=== PATIENT | female | born 1960 | race Caucasian/White ===

== ENCOUNTER 2016-09-25 22:19 | Inpatient (IN) | payer OTHER ==
[~2016-09-25] VITALS: Ht 160 cm; Wt 44.6 kg
[~2016-09-25 22:19] MED LIST: ALDA100T PO; BUPR150T3 PO; HYDR-3533 PO; KETO10 PO; ZOFR4TAB3 SL
[2016-09-25 22:33] VITALS: BP 144/72; PULSE 79; RESP 18; TEMP 98.1; O2SAT 96
[2016-09-25 22:37] VITALS: BP 144/72; PULSE 76; RESP 18; O2SAT 98
[2016-09-25] MEDS ORDERED: CLINDAMYCIN INJ 600 MG in SODIUM CHLORIDE 0.9% INJ 100 ML IV ONE (22:45)
[2016-09-25] MEDS ORDERED: MORPHINE SULFATE 4 MG/ML INJ IV PUSH ONE (22:45)
[2016-09-25] MEDS ORDERED: SODIUM CHLORIDE 0.9% FLUSH 10 ML FLUSH IV FLUSH PRN (22:45)
[2016-09-25] MEDS ORDERED: HYDROmorphone HCL PF 1 MG/ML VIAL IV PUSH ONE (23:15)
[2016-09-25] MEDS ORDERED: AMPICILLIN-SULBACTAM INJ 3 GM in SODIUM CHLORIDE 0.9% INJ 100 ML IV ONE (23:15)
--- NOTE | 2016-09-25 23:25 | RADRPT ---
EXAM DATE/TIME: 09/25/2016 22:51 [facility] COMPARISON: No previous studies available for comparison. INDICATIONS : Left wrist pain from dog bite. MEDICAL HISTORY : None. SURGICAL HISTORY : None. ENCOUNTER: Initial ACUITY: 1 day PAIN SCORE: 10/10 LOCATION: Left posterior wrist. FINDINGS: Three view examination of the left wrist demonstrates no soft tissue swelling, dislocation, or fractu re. The carpal bones are in normal alignment. The joint spaces are maintained. Bony mineralization is normal. Gas is identified in the soft tissues at the level of the radial styloid. CONCLUSION: 1. There is no evidence of acute fracture. Lane Reyes MD on September 25, 2016 at 23:22 Board Certified Radiologist. This report was verified electronically.
--- NOTE | 2016-09-25 23:25 | RADRPT ---
EXAM DATE/TIME: 09/25/2016 22:53 [facility] COMPARISON: No previous studies available for comparison. INDICATIONS : Left hand lacerations from dog bite. MEDICAL HISTORY : None. SURGICAL HISTORY : None. ENCOUNTER: Initial ACUITY: 1 day PAIN SCORE: 10/10 LOCATION: Left posterior hand FINDINGS: Three view examination of the left hand demonstrates no soft tissue swelling, dislocation, or fractur e. The carpal bones appear intact. The interphalangeal and metacarpophalangeal joints are intact. Bony mineralization is normal. CONCLUSION: 1. There is no evidence of acute fracture. Lane Reyes MD on September 25, 2016 at 23:23 Board Certified Radiologist. This report was verified electronically.
--- NOTE | 2016-09-25 23:26 | RADRPT ---
EXAM DATE/TIME: 09/25/2016 22:56 [facility] COMPARISON: No previous studies available for comparison. INDICATIONS : Right hand lacerations from dog bite. MEDICAL HISTORY : None. SURGICAL HISTORY : None. ENCOUNTER: Initial ACUITY: 1 day PAIN SCORE: 10/10 LOCATION: Right anterior hand. FINDINGS: Three view examination of the right hand demonstrates no soft tissue swelling, dislocation, or fractu re. The carpal bones appear intact. The interphalangeal and metacarpophalangeal joints are intact. Bony mineralization is normal. Gas is present in the soft tissues along the volar aspect. CONCLUSION: 1. There is no evidence of acute fracture. Lane Reyes MD on September 25, 2016 at 23:23 Board Certified Radiologist. This report was verified electronically.
[2016-09-25] MEDS ORDERED: TETANUS/DIPHTHERIA TOXOID ADULT 0.5 ML VIAL IM ONE (23:30)
--- NOTE | 2016-09-25 23:37 | PD ---
HPI Chief Complaint: Bite or Sting Time Seen by Provider: 22:29 Travel History International Travel<30 days: No Contact w/Intl Traveler<30days: No Traveled to known affect area: No History of Present Illness HPI 55-year-old female brought in by EMS from home after being bitten on both hands by her dog at home. Patient reports that their house cat ran in front of her dog. The dog growled and appeared as though he might attack the cat, so the patient yelled at him. The dog turned around and bit her in both of her hands. Patient reports that the dog latched onto her hands and it was difficult for her to remove her hands from his mouth. She reports that the dog is fully vaccinated. She does not recall the date of her last tetanus. Pain is currently severe, constant, bilateral hands, worse with movement and palpation. She denies any other injuries. PFSH Past Medical History Depression: Yes Cancer: No Cardiovascular Problems: No Diabetes: No Endocrine: No Genitourinary: Yes (INTERSTITIAL CYSTITIS) Hepatitis: No Hiatal Hernia: No Immune Disorder: No Musculoskeletal: Yes (NECK PAIN, "LOCKS UP") Neurologic: No Psychiatric: No Reproductive: Yes (UTERINE FIBROIDS) Respiratory: No Integumentary: Yes (OILY SKIN) Immunizations Current: Yes Thyroid Disease: No Menopausal: Yes Past Surgical History AICD: No Body Medical Devices: SUKUMAR BREASTS Genitourinary Surgery: Yes ( BLADDER BIOPSY AND HYPERDISTENSION 11/17/07) Hysterectomy: Yes Joint Replacement: No Pacemaker: No Thoracic Surgery: Yes (SUKUMAR BREAST IMPLANTS ) Other Surgery: Yes Social History Alcohol Use: No Tobacco Use: No Substance Use: No Allergies-Medications (Allergen,Severity, Reaction): Coded Allergies: No Known Allergies (Verified , 03/28/15) Reported Meds & Prescriptions Reported Meds & Active Scripts Active Reported Zovirax (Acyclovir) Unknown Strength Tab Unknown Dose PO DAILY PRN Estradiol 1 Mg Tab 1 Mg PO DAILY Aldactone (Spironolactone) 100 Mg Tab 100 Mg PO EVERY OTHER DAY Review of Systems Except as stated in HPI: all other systems reviewed are Neg Physical Exam Narrative GENERAL: Well-developed, well-nourished, awake, alert, tearful, no apparent distress. SKIN: Dorsum of left hand with with 2 deep/worse onto lacerations over the mid aspect of the hand exposing the tendons of the second and third digits. There are no visible contaminants in this wound, no active bleeding. Right hand with a deep L-shaped laceration over the thenar eminence with exposed tendons, no visible contaminants, mild venous bleeding. Deep laceration to the right medial /mid thumb with no active bleeding, no visible contaminants. HEAD: Atraumatic. Normocephalic. EYES: Pupils equal and round. No scleral icterus. No injection or drainage. ENT: Mucous membranes pink and moist. NECK: Trachea midline. No JVD. CARDIOVASCULAR: Regular rate and rhythm. Bilateral distal radial pulses are brisk and equal. Normal capillary refill in bilateral hands. RESPIRATORY: No accessory muscle use. Clear to auscultation. Breath sounds equal bilaterally. GASTROINTESTINAL: Abdomen soft, non-tender, nondistended. Hepatic and splenic margins not palpable. MUSCULOSKELETAL: Skin exam as above in bilateral hands. Bilateral hands are neurovascularly intact. There are no obvious bony deformities. Both hands are diffusely tender. Range of motion exam difficult to perform because the patient is in an extensive amount of pain. NEUROLOGICAL: Awake and alert. No obvious cranial nerve deficits. Motor grossly within normal limits. Normal speech. PSYCHIATRIC: Appropriate mood and affect; insight and judgment normal. Data Data Last Documented VS Vital Signs Date Time Temp Pulse Resp B/P Pulse Ox O2 Delivery O2 Flow Rate FiO2 09/25/16 22:37 76 18 09/25/16 22:37 144/72 98 09/25/16 22:33 98.1 Orders Basic Metabolic Panel (Bmp) (09/25/16 22:38) Complete Blood Count With Diff (09/25/16 22:38) Prothrombin Time / Inr (Pt) (09/25/16 22:38) Act Partial Throm Time (Ptt) (09/25/16 22:38) Iv Access Insert/Monitor (09/25/16 22:38) Ecg Monitoring (09/25/16 22:38) Oximetry (09/25/16 22:38) Sodium Chloride 0.9% Flush (Ns Flush) (09/25/16 22:45) Hand, Complete ([id number]) (09/25/16 ) Hand, Complete ([id number]) (09/25/16 ) Clindamycin Inj (Cleocin Inj) (09/25/16 22:45) Morphine Inj (Morphine Inj) (09/25/16 22:45) Wrist, Complete ([id number]) (09/25/16 ) Ampicillin-Sulbactam Inj (Unasyn Inj) (09/25/16 23:15) Hydromorphone Pf Inj (Dilaudid Pf Inj) (09/25/16 23:15) Tetanus/Diphtheria Tox Adult (Tetanus/Di (09/25/16 23:30) Labs Laboratory Tests Test 09/25/16 23:15 White Blood Count 10.0 TH/MM3 Red Blood Count 4.24 MIL/MM3 Hemoglobin 12.9 GM/DL Hematocrit 38.5 % Mean Corpuscular Volume 90.8 FL Mean Corpuscular Hemoglobin 30.4 PG Mean Corpuscular Hemoglobin 33.5 % Concent Red Cell Distribution Width 13.0 % Platelet Count 214 TH/MM3 Mean Platelet Volume 7.9 FL Neutrophils (%) (Auto) 46.2 % Lymphocytes (%) (Auto) 43.2 % Monocytes (%) (Auto) 7.6 % Eosinophils (%) (Auto) 0.5 % Basophils (%) (Auto) 2.5 % Neutrophils # (Auto) 4.6 TH/MM3 Lymphocytes # (Auto) 4.3 TH/MM3 Monocytes # (Auto) 0.8 TH/MM3 Eosinophils # (Auto) 0.1 TH/MM3 Basophils # (Auto) 0.3 TH/MM3 CBC Comment DIFF FINAL Differential Comment Prothrombin Time 10.7 SEC Prothromb Time International 1.0 RATIO Ratio Activated Partial 22.9 SEC Thromboplast Time Sodium Level 141 MEQ/L Potassium Level 3.6 MEQ/L Chloride Level 103 MEQ/L Carbon Dioxide Level 30.1 MEQ/L Anion Gap 8 MEQ/L Blood Urea Nitrogen 16 MG/DL Creatinine 0.87 MG/DL Estimat Glomerular Filtration 68 ML/MIN Rate Random Glucose 114 MG/DL Calcium Level 8.8 MG/DL MDM Medical Decision Making Medical Screen Exam Complete: Yes Emergency Medical Condition: Yes Differential Diagnosis Dog bite, hand lacerations, hand fractures, tendinous injuries Narrative Course Shortly after the patient arrived to the emergency department, the case was discussed with on-call hand surgeon Dr. Silva. Patient last ate about an hour prior to coming to the emergency department. He contacted the OR, and currently there are two emergent cases as well as an appendicitis case waiting to be done. He will not be able to take the patient to the OR tonight. He will like the patient to be admitted to the medical service. Wounds will be thoroughly irrigated at the bedside, and sterile dressing will be applied. Patient will be given a dose of IV Unasyn and will be admitted to the medical service with consultation to Dr. Silva who plans to take the patient to the OR tomorrow for washout and exploration with likely tendon repair. Bilateral hand x-ray show no acute fractures. Left wrist x-ray shows no acute fracture. Bilateral hand wounds were copiously irrigated, and Telfa and sterile dressing applied by my tech. Patient made aware of all findings and plan for admission. Case discussed with [facility] hospitalist LOLA Perez. The patient will be admitted to their service under Dr. Martin Diagnosis Primary Impression: Dog bite of left hand Qualified Code: S61.452A - Dog bite of left hand, initial encounter Additional Impression: Dog bite of right hand Qualified Code: S61.451A - Dog bite of right hand, initial encounter Admitting Information Admitting Physician Requests: Admit Angel Breaux MD Sep 25, 2016 23:37
[2016-09-25 23:55] LABS: AUTOMATED NEUTROPHIL # 4.6 TH/MM3 (1.8-7.7); BASOPHIL # 0.3 TH/MM3 (0-0.2); BASOPHIL % 2.5 % (0.0-2.0); EOSINOPHIL # 0.1 TH/MM3 (0-0.4); EOSINOPHIL % 0.5 % (0.0-4.0); HEMATOCRIT 38.5 % (35.0-46.0); HEMO FLAGS DIFF FINAL; LYMPH % 43.2 % (9.0-44.0); LYMPHOCYTE # 4.3 TH/MM3 (1.0-4.8); MEAN CELL VOLUME 90.8 FL (80.0-100.0); MEAN CORPUSCULAR HEMOGLOBIN 30.4 PG (27.0-34.0); MEAN CORPUSCULAR HGB CONC 33.5 % (32.0-36.0); MONO % 7.6 % (0.0-8.0); NEUT % 46.2 % (16.0-70.0); PLATELET COUNT 214 TH/MM3 (150-450); RED BLOOD COUNT 4.24 MIL/MM3 (4.00-5.30)
[2016-09-25 23:59] LABS: APTT (PATIENT) 22.9 SEC (24.3-30.1); PROTHROMBIN TIME - PATIENT 10.7 SEC (9.8-11.6)
[2016-09-26] VITALS (10 sets, daily range): BP systolic 110–155; BP diastolic 60–84; PULSE 69–87; RESP 16–18; TEMP 97.1–98.6; O2SAT 96–99
[2016-09-26 00:04] LABS: BICARBONATE 30.1 MEQ/L (21.0-32.0); POTASSIUM 3.6 MEQ/L (3.5-5.1)
[2016-09-26] MEDS ORDERED: ESTR1TAB PO (00:06)
[2016-09-26] MEDS ORDERED: ALDA100T PO (00:06)
[2016-09-26] MEDS ORDERED: ZOVI400T PO (00:06)
[2016-09-26] MEDS ORDERED: HYDROmorphone HCL PF 1 MG/ML VIAL IV PUSH ONE (00:30)
[2016-09-26] MEDS ORDERED: SODIUM CHLORIDE 0.9% FLUSH 10 ML FLUSH IV FLUSH PRN (01:00)
[2016-09-26] MEDS ORDERED: BISACODYL 10 MG SUPP RECTAL PRN (01:00)
[2016-09-26] MEDS ORDERED: MAGNESIUM HYDROXIDE SUSP 30 ML CUP PO PRN (01:00)
[2016-09-26] MEDS ORDERED: HYDROmorphone HCL PF 1 MG/ML VIAL IV PRN ×2 (01:00)
[2016-09-26] MEDS ORDERED: LACTULOSE SYRUP 20 GM/30 ML CUP PO PRN (01:00)
[2016-09-26] MEDS ORDERED: NALOXONE HCL 0.4 MG/ML AMP IV PRN (01:00)
[2016-09-26] MEDS ORDERED: ONDANSETRON HCL 4 MG/2 ML VIAL IVP PRN (01:00)
[2016-09-26] MEDS ORDERED: AMPICILLIN-SULBACTAM INJ 3 GM in SODIUM CHLORIDE 0.9% INJ 100 ML IV SCH (01:00)
[2016-09-26] MEDS ORDERED: SENNOSIDES 8.6 MG TAB PO PRN (01:00)
[2016-09-26] MEDS ORDERED: ACETAMINOPHEN 325 MG TAB PO PRN ×2 (01:00)
[2016-09-26] MEDS: SODIUM CHLOR 0.9% 1000 ML INJ 1,000 ML IV SCH ×3 (01:19→20:53)
[2016-09-26] MEDS ORDERED: SODIUM CHLORID 0.9% 500 ML IV PRN (02:00)
[2016-09-26] MEDS ORDERED: CHLORHEXIDINE GLUCONATE 2 % 1 PACK (2 CLOTHS) TOPICAL PRN (02:00)
[2016-09-26] MEDS ORDERED: LACTATED RINGER'S 1000 ML IV PRN (02:00)
[2016-09-26] MEDS ORDERED: POVIDONE IODINE 5% (ANTISEPSIS KIT) 4 APPLICATIONS EACH NARE PRN (02:00)
[2016-09-26] MEDS ORDERED: INSULIN HUMAN REGULAR 1,000 UNITS/10 ML VIAL SQ PRN (02:00)
[2016-09-26] MEDS ORDERED: METOPROLOL TARTRATE 25 MG TAB PO PRN (02:00)
[2016-09-26] MEDS ORDERED: HYDROmorphone HCL PF 1 MG/ML VIAL IV PUSH PRN (02:45)
[2016-09-26] MEDS ORDERED: KETOROLAC TROMETHAMINE 30 MG/ML (IVP) VIAL IV PUSH ONE (02:45)
[2016-09-26] MEDS: AMPICILLIN-SULBACTAM INJ 3 GM in SODIUM CHLORIDE 0.9% INJ 100 ML IV SCH ×4 (05:00→21:45)
[2016-09-26] MEDS ORDERED: MIDAZOLAM HCL 2 MG/2 ML VIAL ONE (05:43)
[2016-09-26] MEDS ORDERED: ACETAMINOPHEN 1000 MG/100 ML VIAL IV ONE (05:43)
[2016-09-26] MEDS ORDERED: fentaNYL CITRATE 250 MCG/5 ML AMP ONE (05:43)
[2016-09-26] MEDS ORDERED: AMPICILLIN-SULBACTAM INJ 1,500 MG VIAL IM ONE (05:59)
[2016-09-26] MEDS ORDERED: LIDOCAINE HCL 1% 20 ML VIAL INFIL ONE (06:05)
[2016-09-26] MEDS ORDERED: NEOMYCIN/POLYMYXIN 1 ML G.U. IRRIGANT TOPICAL ONE (06:05)
[2016-09-26] MEDS ORDERED: BUPIVACAINE HCL PF 0.5% 30 ML VIAL INFIL ONE (06:05)
--- NOTE | 2016-09-26 07:14 | PD.OP ---
Operative Report Preoperative Diagnosis: (1) Dog bite of left hand (2) Dog bite of right hand Postoperative Diagnosis: (1) dog bite left hand/wrist with infection and extensor tendon laceration (2) Dog bite of multiple sites of right hand and fingers Procedure: exploration, wash, excisional debridement, repair of extensor carpi radialis longus left hand/wrist exploration, wash, and repair multiple lacerations right palm and thumb Anesthesia: general Surgeon: Brad Silva Guitar Repair Technician(s): jose r Operation and Findings: laceration over the dorsal aspect of the left hand/wrist in a transverse fashion with laceration of the extensor carpi radialis longus, extensor tenosynovitis of the 2nd and 4th compartments laceration measuring 3X3 cms over the right palm, laceration measuring 2X1 cms over ulnar aspect of the distal phalanx region of the right thumb Brad Silva MD Sep 26, 2016 07:14
[2016-09-26] MEDS ORDERED: DO NOT ADM ANY ANTICOAGULANT DRUGS PRN (07:18)
[2016-09-26] MEDS: SODIUM CHLORIDE 0.9% FLUSH 10 ML FLUSH IV FLUSH SCH ×2 (07:51→21:46)
[2016-09-26] MEDS: DOCUSATE SODIUM 50 MG/SENNA 8.6 MG TAB PO SCH ×2 (08:49→21:45)
[2016-09-26] MEDS: KETOROLAC TROMETHAMINE 30 MG/ML (IVP) VIAL IV PUSH PRN ×2 (10:20→16:20)
[2016-09-26] MEDS ORDERED: PROPOFOL 200 MG/20 ML AMP IV ONE (12:00)
[2016-09-26] MEDS ORDERED: ePHEDrine/NS 25 MG/5 ML SYR IV ONE (12:00)
[2016-09-26] MEDS ORDERED: ONDANSETRON HCL 4 MG/2 ML VIAL IV PUSH ONE (12:00)
[2016-09-26] MEDS ORDERED: PHENYLEPH/NS 1000 MCG/10 ML SYR IV ONE (12:00)
--- NOTE | 2016-09-26 12:38 | MH ---
cc: SELENA ARDON MD DATE OF ADMISSION: 09/26/2016 DATE OF : 1960 CHIEF COMPLAINT Dog bite. RECENT TRAVEL: Travel in the last 30 days, none. HISTORY OF PRESENT ILLNESS This and a pleasant 55-year-old white female who was bitten yesterday in her home by her dog. She reports according to the record that the cat ran out in front of the dog and there was a potential attack about to happen. The patient went in between the two animals per her instinct and the dog turned around and had bitten both her hands. According to the record he latched on and it was difficult for her to get her hands away from his mouth. She does note the Dog has been fully vaccinated but initially had severe constant pain in her hands, worsened with movement. The patient was brought to the emergency room for further observation and treatment regimen. The patient denies any chest pain, no shortness of breath. No headache. No recent weight gain or weight loss. PAST MEDICAL HISTORY: Medical history includes depression interstitial cystitis. Neck pain. Uterine fibroids. Oily skin. PAST SURGICAL HISTORY Bilateral wrist Bladder biopsy Hyperdistention in 2007. Hysterectomy. She has bilateral breast implants. ALLERGIES No known. MEDICATIONS: acyclovir p.r.n. estradiol 1 mg p.o. daily spirolactone 100 mg by mouth every other day. SOCIAL HISTORY The patient is currently lives at home with her . No tobacco, no illicit drug use. Rare social alcohol intake. REVIEW OF SYSTEMS Review of systems 12-point reviewed at this time. Positives noted in the HPI which include her injury and trauma to the hands from a dog bite. Other systems negative or unremarkable. PHYSICAL EXAMINATION: VITAL SIGNS: Temperature 97.1, pulse 82, respirations 16, blood pressure 131/72, has been as low as 99/54, now 151/71 postop. IN GENERAL: Thin white female looks to be her stated age ambulating to the bathroom and resting in the bed. The patient is status post hand surgery with repair of lacerations and left hand tendon repair. Her dressings are clean, dry and intact. SKIN: The skin is pink, warm and dry. HEAD, EYES, EARS, NOSE, AND THROAT: Atraumatic, normocephalic. Pupils equal, round, reactive to light and accommodation at three. No scleral icterus. Mucous membranes were pink and moist. NECK: Neck is supple. CARDIOVASCULAR SYSTEM: Heart sounds, S1, S2, no murmurs, rubs or gallops. No edema, pulses are intact. PULMONARY: Essentially clear, anteriorly and posteriorly. ABDOMEN: Flat, soft, nontender, active bowel sounds in all four Quadrants. MUSCULOSKELETAL: Moves her lower extremities with purpose. Overcomes resistance. No obvious deformities. Both hands are secured with bulky dressings, clean, dry and intact. The left hand has a larger bulkier dressing then the right and is elevated. NEUROLOGICALLY: She is awake, alert, mildly anxious white cell are mildly anxious over current condition and her bowel voices clear psychiatric with and affect are appropriate. DIAGNOSTIC DATA White blood count, red blood cells 4.24, hemoglobin 12.9, hematocrit 38.5, platelet count 214. Basal cell count percentage 2.5, PT/INR 1. Chemistry sodium 141 potassium 3.6, chloride 103, carbon dioxide 30.1, amnion gap 8, BUN 16, creatinine 0.87, GFR 68, random glucose 114, calcium 8.8. IMAGINING STUDIES: Show wrist x-ray with no evidence of acute fracture. Hand x-rays no fractures in the left or right. ASSESSMENT AND PLAN: Dog bite bilateral, left and right hand, accidental. History of uterine fibroids, perimenopausal. Left extensor tendon laceration with infection on dog bite right hand and finges, multiple sites. Dog bite left hand and wrist with infection and extensor tendon laceration. PLAN: Our plan is to admit, the patient was treated in the emergency room with IV antibiotics. Pain management, initial labs and x-rays, hand surgery consult was done, the patient was taken to the surgery this morning for repair of her lacerations and tendons. She is status post surgical procedure, in the room now, up ambulating, awake and alert, anxious and upset over the current dog bite situation and her dog. Vital signs are q four hours and as needed. Medications were reconciled as warranted. The patient has cultures that are pending from the wound. IV antibiotics, ampicillin. Toradol 10 mV IV every 6 hours and needed for pain. Also has IV pain management with Dilaudid as needed. bowel regimen with laxatives and stool softeners as warranted. DVT prophylaxis with sequential compression devices. Prophylaxis with Pepcid. We appreciate the consult and following of surgeon. Patient will remain on IV antibiotics until transition to p.o. the patient is still full code, full aggressive care. Selena Ardon MD DICTATED BY: SHARI Walker/aida /11:18 AM 11:56 AM seen, examined by myself, Dr Ardon, today Discussed with patient Moving the fingers of both hands, left upper extremity elevated Status post surgery by hand surgeon Continue antibiotics per infectious disease specialist She wants to go home tomorrow She will have to have clearance from both hand surgery and ID before doing that Discussed with mid level provider The exam, history, and the medical decision-making described in the above note were completed with the assistance of the mid-level provider. I reviewed the findings presented. I attest that I had a [id number] encounter with the patient on the same day, and personally performed and documented my assessment and findings in the medical record. 40 minutes MTDD
[2016-09-26] MEDS: FAMOTIDINE 20 MG TAB PO SCH (21:46)
[2016-09-27] MEDS: AMPICILLIN-SULBACTAM INJ 3 GM in SODIUM CHLORIDE 0.9% INJ 100 ML IV SCH ×2 (04:37→10:56)
[2016-09-27] MEDS: KETOROLAC TROMETHAMINE 30 MG/ML (IVP) VIAL IV PUSH PRN ×2 (04:38→10:57)
[2016-09-27 05:21] VITALS: BP 123/70; PULSE 74; RESP 16; TEMP 98.6; O2SAT 97
[2016-09-27 08:00] VITALS: BP 136/76; PULSE 79; RESP 18; TEMP 97.9; O2SAT 97
[2016-09-27] MEDS ORDERED: ESTRADIOL 1 MG TAB PO SCH (09:00)
[2016-09-27] MEDS: DOCUSATE SODIUM 50 MG/SENNA 8.6 MG TAB PO SCH (09:00)
[2016-09-27 10:03] VITALS: O2SAT 97
--- NOTE | 2016-09-27 10:26 | HHI.PR ---
Subjective Remarks complains of pain over the left wrist no pain right hand no numbness or tingling no fever Objective Vital Signs Date Time Temp Pulse Resp B/P Pulse Ox O2 Delivery O2 Flow Rate FiO2 09/27/16 10:03 97 21 09/27/16 08:00 97.9 79 18 136/76 97 09/27/16 05:21 98.6 74 16 123/70 97 09/26/16 23:59 98.0 76 16 131/60 98 09/26/16 20:04 97.6 69 16 110/61 96 09/26/16 16:22 98.6 85 16 154/69 99 09/26/16 14:08 98 Nasal Cannula 3.00 09/26/16 11:14 98.6 82 155/62 97 I/O 09/26/16 09/26/16 09/26/16 09/27/16 09/27/16 09/27/16 07:00 15:00 23:00 07:00 15:00 23:00 Intake Total 0 ml 290 ml 480 ml Balance 0 ml 290 ml 480 ml Intake Oral 0 ml 240 ml 480 ml IV Total 50 ml # Voids 0 2 2 # Bowel Movements 0 0 left hand and wrist: packing in place surrounding swelling noted mild drainage range of motion of fingers painful and limited intact distal circulation intact distal sensation right hand: wound clean and dry able to make full fist intact sensation gram stain: many wbc's Result Diagram: 09/25/16 2315 09/25/165 Assessment and Plan Assessment and Plan 55 year old female s/p exploration, wash, debridement, repair of ECRL left wrist and hand POD 1 plan; packing removed dry dressing applied new volar wrist splint applied can be discharged on home on po augmentin and pain meds keep the part elevated range of motion exercises follow up in office on Thursday09/30/16. call [phone] for appointment Brad Silva MD Sep 27, 2016 10:26
[2016-09-27] MEDS: FAMOTIDINE 20 MG TAB PO SCH (10:57)
[2016-09-27] MEDS: SODIUM CHLORIDE 0.9% FLUSH 10 ML FLUSH IV FLUSH SCH (10:58)
[2016-09-27] MEDS ORDERED: KETO10 PO (11:02)
[2016-09-27] MEDS ORDERED: AUGM875T3 PO (11:02)
--- NOTE | 2016-09-27 11:03 | HHI.DCPOC ---
Discharge Care Plan Diagnosis: (1) dog bite left hand/wrist with infection and extensor tendon laceration Your Health Problems Are: Skin Breakdown Inflammation Swelling Goals to Promote Your Health * To prevent worsening of your condition and complications * To maintain your health at the optimal level Directions to Meet Your Goals Take your medications as prescribed Follow your dietary instruction Follow activity as directed Keep your appointments as scheduled Take your immunizations and boosters as scheduled If your symptoms worsen call your PCP, if no PCP go to Urgent Care Center or Emergency Room Smoking is Dangerous to Your Health. Avoid second hand smoke Call the 24-hour hour crisis hotline for domestic abuse at Bri Winkler. [facility] Sep 27, 2016 11:03
--- NOTE | 2016-09-27 11:09 | HHI.PR ---
Subjective Subjective Remarks anxious to go home, cleared by hand surgeon, has f/u appointment narcotics make her sick, prefers Toradol no cp no sob no fever left hand sore intact sensation mother at d doesn't want [facility] Review of Systems Constitutional Constitutional Remarks 12 point ros completed, negative except as noted above Vitals/Results Intake & Output 09/26/16 09/26/16 09/27/16 14:59 22:59 06:59 Intake Total 290 ml 480 ml Balance 290 ml 480 ml Intake Oral 240 ml 480 ml IV Total 50 ml # Voids 2 2 # Bowel Movements 0 Vital Signs Vital Signs Date Time Temp Pulse Resp B/P Pulse Ox O2 Delivery O2 Flow Rate FiO2 09/27/16 10:03 97 21 09/27/16 08:00 97.9 79 18 136/76 97 09/27/16 05:21 98.6 74 16 123/70 97 09/26/16 23:59 98.0 76 16 131/60 98 09/26/16 20:04 97.6 69 16 110/61 96 09/26/16 16:22 98.6 85 16 154/69 99 09/26/16 14:08 98 Nasal Cannula 3.00 09/26/16 11:14 98.6 82 155/62 97 CBC/BMP: 09/25/16 2315 09/25/16 2315 Physical Exam General General Appearance: Well Developed, Well Nourished, No Acute Distress, Comfortable Eyes Eye Exam: Pupils Equal, Pupils Reactive Ears & Nose Ears & Nose Exam: Nasal Mucosa [place] Throat Throat Exam: Oral Mucosa [place] & Moist Neck Neck Exam: Neck Supple Pulmonary Resp Exam: Clear Bilaterally, No Distress Cardiology CV Exam: Regular, Good Perfusion Gastrointestinal/Abdomen GI Exam: Soft, Non-Tender, Bowel Sounds Present, Non-Distended Musculoskeletal MS Exam: Joints Intact MS Remarks left harm with bulky dressing intact right hand with dressing intact fingers swollen, able to move intact sensation Integumentary Skin Exam: Warm, Dry Extremeties Extremities Exam: No Edema, Pedal Pulses Palpable Neurologic Neuro Exam: Alert, Awake, Oriented, Speech Clear, Moving All Extremities, No Focal Deficits Psychiatric Psych Exam: Appropriate Responses VTE Prophylaxis VTE Prophylaxis Device: SCDs VTE Remarks PEPCID Assessment/Plan Problem List: (1) Dog bite of multiple sites of right hand and fingers (2) Dog bite of left hand (3) dog bite left hand/wrist with infection and extensor tendon laceration Assessment/Plan appreciate hand surgery input 09/26-S/P exploration, wash, excisional debridement, repair of extensor carpi radialis longus left hand/wrist & exploration, wash, and repair multiple lacerations right palm and thumb had dressing changed today continue abx ok for dc with f/u Thursday and keep dressing intact, needs sling recommends Augmentin x 1 week cultures negative no fever, pain well controlled on Toradol doesn't want narcotics stable for discharge F/U Dr. Carmona on 09/30 Wound care-done today, leave as is Activity-keep left arm elevated, use sling Diet-regular D/W RN D/W Dr. Kellogg D/W pt This patient was seen by myself and Dr. Kellogg, this note is written on her behalf. Discharge Minutes: 40 Problem Qualifiers (1) Dog bite of multiple sites of right hand and fingers: Qualified Code: S61.451A - Dog bite of multiple sites of right hand and fingers , initial encounter (2) Dog bite of left hand: Qualified Code: S61.452A - Dog bite of left hand, initial encounter Bri Winkler Sep 27, 2016 11:09
--- NOTE | 2016-09-27 18:37 | HHI.DS ---
Discharge Summary Admission Date Sep 26, 2016 at 00:31 Discharge Date: Sep 27, 2016 Admitting Diagnosis dog bite of bilateral hands (1) Dog bite of left hand (2) Dog bite of right hand (3) dog bite left hand/wrist with infection and extensor tendon laceration (4) Dog bite of left hand with infection Procedures 09/26-S/P exploration, wash, excisional debridement, repair of extensor carpi radialis longus left hand/wrist & exploration, wash, and repair multiple lacerations right palm and thumb CBC/BMP: 09/25/16 2315 09/25/16 2315 Significant Findings Laboratory Tests Test 09/25/16 23:15 Basophils (%) (Auto) 2.5 % (0.0-2.0) Basophils # (Auto) 0.3 TH/MM3 (0-0.2) Activated Partial 22.9 SEC Thromboplast Time (24.3-30.1) Estimat Glomerular Filtration 68 ML/MIN (>89) Rate Random Glucose 114 MG/DL (74-106) Imaging Last Impressions Wrist X-Ray 09/25/16 0000 Signed Impressions: Service Date/Time: September 22:51 - CONCLUSION: 1. There is no evidence of acute fracture. Lane Reyes MD Hand X-Ray 09/25/16 0000 Signed Impressions: Service Date/Time: September 22:56 - CONCLUSION: 1. There is no evidence of acute fracture. Lane Reyes MD Hospital Course This is a pleasant 55-year-old white female who was bitten yesterday in her home by her dog. She reported according to the record that the cat ran out in front of the dog and there was a potential attack about to happen. The patient went in between the two animals per her instinct and the dog turned around and bit both her hands. According to the record he latched on and it was difficult for her to get her hands away from his mouth. She did note the Dog has been fully vaccinated but initially had severe constant pain in her hands, worsened with movement. The patient was brought to the emergency room for further observation and treatment regimen. The patient denied any chest pain, no shortness of breath. No headache. No fever, no chills. Pt. was evaluated. DIAGNOSTIC DATA White blood count 10, red blood cells 4.24, hemoglobin 12.9, hematocrit 38.5, platelet count 214. Basal cell count percentage 2.5, PT/INR 1. Chemistry sodium 141 potassium 3.6, chloride 103, carbon dioxide 30.1, amnion gap 8, BUN 16, creatinine 0.87, GFR 68, random glucose 114, calcium 8.8. IMAGINING STUDIES: Show wrist x-ray with no evidence of acute fracture. Hand x-rays no fractures in the left or right. Pt. was admitted for: (1) Dog bite of multiple sites of right hand and fingers (2) Dog bite of left hand (3) dog bite left hand/wrist with infection and extensor tendon laceration (4) History of uterine fibroids, perimenopausal. During the course of the hospitalization the following took place: Patient was admitted, and surgery was consulted. Patient was started on empiric antibiotics. Cultures were obtained. Tetanus vaccination was given appreciate hand surgery input, surgery was recommended 09/26-S/P exploration, wash, excisional debridement, repair of extensor carpi radialis longus left hand/wrist & exploration, wash, and repair multiple lacerations right palm and thumb Postop course was uneventful, patient had dressing changed per surgeon the next day continued abx Patient was clear for discharge by hand surgeon with instructions. ok for dc with f/u Thursday and keep dressing intact, needed sling recommended Augmentin x 1 week cultures negative no fever, pain well controlled on Toradol Did not want narcotics stable for discharge F/U Dr. Carmona on 09/30 Wound care-done today, leave as is Activity-keep left arm elevated, use sling. Sling provided Diet-regular Pt Condition on Discharge: Stable Discharge Disposition: Discharge Home Discharge Instructions DIET: Follow Instructions for: Heart Healthy Diet Activities you can perform: Weight Bearing as [place] Other Activity Instructions: KEEP LEFT ARM ELEVATED, USE SLING AT ALL TIMES Follow up Referrals: Hand Surgery - 2-[address] MILAN PCP Follow-up New Medications: Amoxicillin-Clavulanate (Augmentin) 875-125 Mg Tab 1 TAB PO BID Infection #14 Ref 0 TAB Ketorolac (Ketorolac) 10 Mg Tab 21 MG PO TID PRN Pain Management #21 Ref 0 TAB Continued Medications: Acyclovir (Zovirax) Unknown Strength Tab Unknown Dose PO DAILY PRN FLARE UP Ref 0 TAB Estradiol (Estradiol) 1 Mg Tab 1 MG PO DAILY Estrogen Supplements #30 Ref 0 TAB Spironolactone (Aldactone) 100 Mg Tab 100 MG PO EVERY OTHER DAY #30 Ref 0 TAB Bri Winkler [facility] Sep 27, 2016 18:37
--- NOTE | 2016-10-03 07:55 | MP ---
cc: PITA SCOTT MD DATE OF SURGERY 10/02/2016 PREOPERATIVE DIAGNOSIS Dog bite with laceration dorsal aspect of the left wrist and hand, multiple lacerations right palm and thumb. POSTOPERATIVE DIAGNOSIS Dog bite with laceration and extensor tenosynovitis second and third compartment with laceration of the extensor carpi radialis longus left hand and wrist and laceration involving the right palm and the right thumb. PROCEDURE Exploration, wash, excisional debridement and repair extensor carpi radialis longus left hand and wrist, exploration wash, repair of multiple laceration right palm and right thumb. INDICATIONS The patient is a 55-year-old right-hand dominant female who presented with complaints of dog bite to both hands. She was bitten by her own dog several hours ago. The patient complains of pain and laceration over the dorsal aspect of the left wrist and hand. She also complains of laceration over the right hand. She denies any tingling or numbness. On examination, she had laceration over the dorsal aspect of the wrist extending in an oblique fashion from the ulnar aspect of the wrist down to the dorsoradial aspect with evidence of exposed shredded tendon noted within the wound. She was consented for exploration and repair of tendons and wash out. The patient was explained the risks and benefits of the procedure. PROCEDURE NOTE The patient was brought to the operating room. Under general anesthesia, the left and right upper extremities were thoroughly prepped and draped. The left upper extremity was initially managed. After limb elevation, the tourniquet was inflated to 250 mmHg. Exploration of the wound was carried out. Intraoperative findings included oblique laceration over the dorsal aspect of the wrist measuring about 5-6 cm. On further exploration, there was evidence of complete laceration of the extensor carpi radialis longus tendon. This was almost an avulsion from the base of the second metacarpal. There was also evidence of swelling around the extensor compartment of the second and the fourth tendons. This was opened up. There was evidence of purulence like material within the tenosynovium. Hence, decision was made to proceed with debridement of the extensor compartment, excisional debridement of infected tenosynovium was carried out of the fourth and the second compartments. The wrist joint appears to be not involved with the laceration. Extensor carpi radialis brevis was found to be intact. The EPL was found intact and other extensor tendons of the fingers were also found to be intact. A thorough wash out of the wound was carried out with normal saline mixed with irrigant. About a liter of solution was used. The tendon edges were then freshened up and the extensor carpi radialis longus was repaired to the periosteum of the second metacarpal with multiple 3-0 Ethibond stitches keeping the wrist in extension. The laceration was then loosely approximated using 5-0 nylon in a horizontal mattress interrupted fashion with packing in between the sutures. About 5 cc of local anesthesia containing a mixture of 2% lidocaine and 5% Marcaine was injected across the incision site. A bulky hand dressing was applied which was held in place by a bias hand wrap and a volar splint was applied keeping the wrist in extension. Tourniquet was deflated. She had good distal circulation at the end of the procedure. Attention was then directed to the right hand. Intraoperative findings included laceration involving the thumb of the first webspace on the palmar aspect measuring about 3-4 cm and another laceration along the ulnar aspect of the IP joint of the thumb measuring about 2-3 cm. Thorough wash of the wounds were carried out using normal saline mixed with irrigant. The laceration was loosely approximated using 5-0 nylon in a horizontal mattress interrupted fashion. Xeroform, bacitracin dressing applied. A bulky hand dressing was applied. No tourniquet was used on the right side. The patient was sent to the Recovery Room in stable condition. Plan will be to keep her admitted for IV antibiotics and change the dressing tomorrow. Pita Scott MD SE/ELIZABETH /10:35 AM /7:36 AM
== END 2016-09-27 14:30 | disposition home or self-care (01) | DRG 580 ==
LOC: NEPD 22:19 → NEDA 09-26 00:31 → N06B 09-26 01:38
PROVIDERS: ADMIT Specialist; ATTEND Specialist
PROC: 0HQFXZZ Repair Right Hand Skin, External Approach (ICD-10-PCS; 2016-09-26)
PROC: 3E10X8Z Irrigation of Skin and Mucous Membranes using Irrigating Substance (ICD-10-PCS; 2016-09-26)
PROC: 0LB80ZZ Excision of Left Hand Tendon, Open Approach (ICD-10-PCS; 2016-09-26)
PROC: 0JQJ3ZZ Repair Right Hand Subcutaneous Tissue and Fascia, Percutaneous Approach (ICD-10-PCS; 2016-09-26)
PROC: 3E10X8Z Irrigation of Skin and Mucous Membranes using Irrigating Substance (ICD-10-PCS; 2016-09-26)
PROC: 0LQ80ZZ Repair Left Hand Tendon, Open Approach (ICD-10-PCS; principal; 2016-09-26 05:44)
PROC: 0HQGXZZ Repair Left Hand Skin, External Approach (ICD-10-PCS; 2016-09-26 05:44)
DX: S61.451A Open bite of right hand, initial encounter (principal); S66.822A Laceration of other specified muscles, fascia and tendons at wrist and hand level, left hand, initial encounter; F32.9 Major depressive disorder, single episode, unspecified; S61.452A Open bite of left hand, initial encounter; W54.0XXA Bitten by dog, initial encounter; Y93.89 Activity, other specified; Y92.009 Unspecified place in unspecified non-institutional (private) residence as the place of occurrence of the external cause; Y99.9 Unspecified external cause status; M65.9 Synovitis and tenosynovitis, unspecified
CPT/HCPCS: 73110; 73130; 80048; 85025; 85610; 85730; 87015; 87070; 87102; 87116; 87205; 87206; 90471; 90714; 96374; 96375; J0131; J0295; J1170; J1885; J2250; J2370; J2405; J3010; J7030